=== PATIENT | male | born 1950 | race Caucasian/White ===

== ENCOUNTER 2016-10-26 10:28 | Emergency (ER) | payer OTHER, MEDICARE ==
[~2016-10-26] VITALS: Ht 182.9 cm; Wt 81.6 kg
[~2016-10-26 10:28] MED LIST: ASPIRIN EC325 MG PO; BUFFERIN LOW DO81 MG PO; LOSARTAN POTAS100 M1 PO; SIMVASTATIN40 M1 PO
--- NOTE | 2016-10-26 12:09 | ED GI/GU/ABDOMINAL COMPLAINT ---
History of Present Illness General Chief Complaint: Abdominal Pain/Flank Pain Stated Complaint: LOWER ABD PAIN Source: patient, family Exam Limitations: no limitations Vital Signs & Intake/Output Vital Signs & Intake/Output Vital Signs Date Time Temp Pulse Resp B/P Pulse O2 O2 Flow FiO2 Ox Delivery Rate 10/26 1145 Room Air Room Air 10/26 1054 97.7 66 20 175/76 100 Room Air Allergies Coded Allergies: No Known Allergies (10/26/16) Reconcile Medications Hyoscyamine Sulfate (Levsin-Sl) 0.125 MG TAB.SUBL 1-2 TAB SL Q4P PRN ABDOMINAL SPASMS Losartan Potassium 100 MG TABLET 1 TAB PO DAILY BP (Reported) Omeprazole 20 MG CAPSULE.DR 1 CAP PO DAILY ACID REFLUX (Reported) Primidone 250 MG TABLET 1 TAB PO UNKNOWN (Reported) Simvastatin (Simvastatin*) 40 MG TABLET 1 TAB PO DAILY CHOLESTEROL (Reported) Tamsulosin HCl 0.4 MG CAP.ER.24H 1 CAP PO DAILY PROSTATE (Reported) Triage Note: TRIAGE: PT TO ER WITH C/C LOW ABD PAIN X 1-2 MONTHS, CONSTANT SINCE ONSET. WAS SEEN BY PMD DR AWAD FOR SAME AND WAS REFERRED TO UROLOGIST DR MCFARLANE BECAUSE HIS BLOOD COUNT FOR PROSTATE LEVELS WAS HIGH. HAS SEEN DR MCFARLANE X 3. WAS GIVEN PAIN PILLS AND ANTIBIOTICS BECAUSE "HE SAY I MIGHT HAVE INFECTION BUT HE NEVER TESTED FOR IT AND HE SHOULD HAVE DONE THAT". STATES HE NEVER DID AN ULTRASOUND. REPORTS HAS ALSO HAD PAIN TO [facility]ES GIVING HIM TROUBLE EVEN SITTING DOWN. REPORTS 10 LB WEIGHT LOSS IN 1 MONTH, HAS HAD DECREASED APPETITE. Triage Nurses Notes Reviewed? yes Onset: Gradual Duration: 1 MONTH Timing: recent history Quality/Severity: moderate Severity Numbers: 7 Location: left lower quadrant, right lower quadrant Radiation: back Activities at Onset: none Prior Abdominal Problems: similar symptoms Past Sexual History: Unobtainable at this time No Modifying Factors: none HPI: Patient is a 66-year-old male with history of benign prostate hypertrophy, diverticulitis, recent UTI presenting to the emergency department with chief complaint lower abdominal pain that radiates to the back bilaterally as been constant for the past 1-2 months. Symptoms worse over the past week or so. He saw his primary care physician and a urologist. He now takes medication for his BPH, recently finished antibiotics for a UTI yesterday. Denies any fevers or chills. This morning he noticed his stool is very dark in color. The doctor that diagnosed him with a BPH gave him a prescription for ibuprofen 800 mg to take 3 times a day as needed for pain. He has been doing that and a regular basis for the past 10 days. Denies any dysuria urgency frequency or hematuria. Denies any chest pain shortness of breath. Also reports an 11 pound weight loss over the past 1 month. This was unintentional. (BRYAN GRAVES) Past History Travel History Traveled to [place] past 21 day No Medical History Any Pertinent Medical History? see below for history Neurological: HEADACHES EENT: NONE Cardiovascular: hypertension, hyperlipidemia Respiratory: NONE Gastrointestinal: GERD Hepatic: NONE Renal: NONE Musculoskeletal: osteoarthritis Psychiatric: NONE Endocrine: NONE Blood Disorders: NONE Cancer(s): NONE SALES SERVICE COORDINATOR/Reproductive: NONE History of MRSA: No History of VRE: No History of CDIFF: No Surgical History Surgical History: N Psychosocial History Who do you live with Spouse Services at Home N/A What is your primary language Macanese Tobacco Use: Quit >30 days ago ETOH Use: denies use Illicit Drug Use: denies illicit drug use Family History Hx Contributory? No (BRYAN GRAVES) Review of Systems Review of Systems Constitutional: Reports: no symptoms. Comments Review of systems: See HPI, All other systems negative. Constitutional, no chills fever HEENT: No visual changes no sore throat no congestion Cardiovascular: No chest pain ,palpitation , orthopnea or ankle swelling Skin, no jaundice no rashes Respiratory: No dyspnea cough sputum or hemoptysis GI: no vomiting : No dysuria No hematuria Muscle skeletal: no neck pain, Neurologic: No numbness no confusion NO WEI Psych: No stress anxiety or depression,. Heme/endocrine: No bruising no bleeding no polyuria or polydipsia Immunology: No splenectomy or history of AIDS (BRYAN GRAVES) Physical Exam Physical Exam General Appearance: well developed/nourished, alert, awake, comfortable Gastrointestinal: normal bowel sounds, soft, tenderness Comments: Well-developed well-nourished person in no acute distress HEENT: Pupils equally round and reactive to light and accommodation. Nose is atraumatic. Pharynx normal. No swelling or edema. No pallor to palpable conjunctiva. Neck: Supple, no lymphadenopathy, normal range of motion without pain or tenderness Back: Nontender, no CVA tenderness. Full range of motion, NEG STRAIGHT LEG RAISE. Cardiovascular: Regular rate and rhythms no murmurs rubs or gallops, normal JVP Respiratory: Chest nontender. No respiratory distress.breath sounds clear to auscultation bilaterally Abdomen: Soft, tentative palpation in lower quadrants bilaterally without rebound or guarding. Bowel sounds throughout all 4 quadrants. Nondistended. : Brown stool, guaiac positive, tender to palpation in the 1 o'clock position. No palpable internal hemorrhoids, no visualized external hemorrhoids. Rectal tone within normal range. Extremity: No edema Neuro: Alert oriented x3, motor sensory normal, cranial nerves II through XII grossly intact. Skin: No appreciable rash on exposed skin, skin is warm and dry. Psych: Mood and affect is normal, memory and judgment is normal. Core Measures ACS in differential dx? No Severe Sepsis Present: No Septic Shock Present: No (ELLI NATION,BRYAN) Progress Differential Diagnosis: DIVERTICULITIS, DIVERTICULOSIS, UPPER gi BLEED, LOWER gi BLEED, METASTATIC CANCER, PROSTATE CANCER Plan of Care: Orders Procedure Date/time Status URINALYSIS 10/26 1215 Complete LACTIC ACID 10/26 1215 Complete WESTERGREN SED RATE 10/26 1215 Complete COMPREHENSIVE METABOLIC PANEL 10/26 1215 Complete CBC WITHOUT DIFFERENTIAL 10/26 1215 Complete Laboratory Tests 10/26/16 1230: Anion Gap 7, Estimated GFR > 60, BUN/Creatinine Ratio 21.1, Glucose 88, Lactic Acid 0.9, Calcium 9.9, Total Bilirubin 0.6, AST 24, ALT 41, Alkaline Phosphatase 84, Total Protein 8.1, Albumin 4.5, Globulin 3.6, Albumin/Globulin Ratio 1.3, APTT Cancelled, CBC w Diff NO MAN DIFF REQ, RBC 4.92, MCV 87.4, MCH 29.9, RDW 12.7, MPV 9.1, Gran % 65.5, Lymphocytes % 23.9, Monocytes % 9.0, Eosinophils % 1.1, Basophils % 0.5, Absolute Granulocytes 3.8, Absolute Lymphocytes 1.4, Absolute Monocytes 0.5, Absolute Eosinophils 0.1, Absolute Basophils 0, PUBS MCHC 34.2, ESR Westergren 11 H 10/26/16 1220: Urine Color STRAW, Urine Clarity CLEAR, Urine pH 7.0, Ur Specific Worthington 1.010, Urine Protein NEG, Urine Ketones NEG, Urine Nitrite NEG, Urine Bilirubin NEG, Urine Urobilinogen 0.2, Ur Leukocyte Esterase NEG, Ur Microscopic EXAM NOT REQUIRED, Urine Hemoglobin NEG, Urine Glucose NEG Diagnostic Imaging: Viewed by Me: CT Scan. Discussed w/RAD: CT Scan. Radiology Impression: PATIENT: ONEAL LOCKE PRESENT AGE: 66 PATIENT ACCOUNT NO: [id number] : 48 LOCATION: [facility] ORDERING PHYSICIAN: BRYAN NATION SERVICE DATE: 10/26/16 EXAM TYPE: CAT - CT ABD & PELVIS W IV CONTRAST EXAMINATION: CT ABDOMEN AND PELVIS WITH CONTRAST CLINICAL INFORMATION: Diverticulitis. Abscess. COMPARISON: None TECHNIQUE: Multidetector volumetric imaging was performed of the abdomen and pelvis before and after the IV administration of 94 mL of Optiray 320 intravenous contrast. Sagittal and coronal reformatted images were obtained on the technologist's workstation. DLP: 342.62 mGy-cm FINDINGS: LUNG BASES: The lung bases are clear. There is no pleural effusion. The heart is normal in size. There is no pericardial effusion. LIVER, GALLBLADDER, AND BILIARY TREE: The liver is normal in size, shape, and attenuation. No focal hepatic lesion or biliary ductal dilatation is present. The gallbladder is unremarkable with no evidence of radiopaque gallstones, gallbladder wall thickening, or obvious pericholecystic inflammatory changes. PANCREAS: Unremarkable. SPLEEN: Unremarkable. ADRENAL GLANDS: Unremarkable. KIDNEYS AND URETERS: The kidneys are normal in size, shape , and attenuation. No hydronephrosis, hydroureter, or calculi seen. No perinephric stranding. BLADDER: Unremarkable. GASTROINTESTINAL TRACT: The small and large bowel are unremarkable. There is moderate descending and sigmoid colon diverticulosis. There is no convincing evidence of acute diverticulitis. The appendix is unremarkable. ABDOMINAL WALL: No significant hernia is appreciated. LYMPH NODES: No lymphadenopathy. VASCULAR: The visualized aorta is normal in caliber. PELVIC VISCERA: The prostate gland is enlarged, measuring up to 5.8 cm. OSSEOUS STRUCTURES: Degenerative changes of the thoracolumbar spine. IMPRESSION: There is moderate descending and sigmoid colon diverticulosis. There is no convincing evidence of acute diverticulitis. No intra-abdominal/intrapelvic abscess., PRESENT AGE: 66 PATIENT ACCOUNT NO: [id number] : 48 LOCATION: [facility] ORDERING PHYSICIAN: BRYAN NATION SERVICE DATE: 10/26/16 EXAM TYPE: CAT - CT LUMB SPINE WO IV CONTRAST EXAMINATION: CT LUMBAR SPINE WITHOUT CONTRAST CLINICAL INFORMATION: Rule out bone lesion. Pain. Weight loss. COMPARISON: None TECHNIQUE: Helical non-contrast CT images were obtained through the lumbar spine and 1.25 and 2.5 mm axial reconstructions were reviewed along with sagittal and coronal MPRs. DLP: 600.43 mGy-cm FINDINGS: Lumbar spinal alignment is normal. The lumbar vertebrae are normal in stature. Intervertebral disc space heights are relatively well preserved. The posterior elements are well aligned. SPINAL LEVELS: T12-L1: No disc herniation, spinal canal or neural foraminal narrowing. L1-L2: No disc herniation, spinal canal or neural foraminal narrowing. L2-L3: No disc herniation, spinal canal or neural foraminal narrowing. L3-L4: There is a shallow broad-based disc bulge and facet arthropathy. There is flattening of the ventral thecal sac without spinal canal stenosis. No significant neural foraminal narrowing. L4-L5: There is a shallow broad-based disc bulge and facet arthropathy. No spinal canal or significant neural foraminal narrowing. L5-S1: There is a shallow broad-based disc bulge. There is facet arthropathy. No spinal canal or neural foraminal narrowing. IMPRESSION: Mild lumbar spondylosis. No osseous lesion is seen. DICTATED BY: THEODORA COSTA MD DATE/TIME DICTATED:10/26/161429 MAXILLOFACIAL SURGEON:RADHA DATE/TIME TRANSCRIBED:10/26/161429 CONFIDENTIAL, DO NOT COPY WITHOUT APPROPRIATE AUTHORIZATION. <Electronically signed in Other Vendor System> SIGNED BY: THEODORA COSTA MD 10/26/16 9439 Initial ED EKG: none Comments: On arrival patient declined pain medication. Patient is nontoxic bite is within normal range. Patient does have reproducible lower abdominal pain. Patient is guaiac positive. Likely from excessive ibuprofen use. Cannot exclude upper GI bleed. Patient informed of all laboratory results and imaging study results. H&H is stable. Advised to stop using ibuprofen and he will follow up with GI. Patient given Levsin to help with abdominal discomfort. The lumbar CT scans that show herniated disc between L3 and L4 which could correlate to some abdominal discomfort. Discussed with Dr. Edmonds and he agrees to plan. Patient nontoxic. No signs of cauda equina. (BRYAN GRAVES) Departure Departure Time of Disposition: 1503 Disposition: HOME OR SELF CARE Condition: Stable Clinical Impression Primary Impression: Abdominal pain Qualifiers: Abdominal location: unspecified location Qualified Code: R10.9 - Unspecified abdominal pain Secondary Impressions: Diarrhea Qualifiers: Diarrhea type: unspecified type Qualified Code: R19.7 - Diarrhea, unspecified Referrals: DELMI MAS,BERTHA Reno (PCP/Family) Additional Instructions: Follow-up with your primary care physician as well as gastroenterology call to make an appointment. Stop taking ibuprofen on a regular basis as this can cause stomach ulcers and bleeding. Take Levsin as directed for any abdominal discomfort or spasms. Increase fluids. Take omeprazole as prescribed. Return for worsening symptoms or concerns. Increase YOUR omeprazole to twice a day for the next 7 days. Departure Forms: Customer Survey General Discharge Information Prescriptions: Current Visit Scripts Hyoscyamine Sulfate (Levsin-Sl) 1-2 TAB SL Q4P PRN ABDOMINAL SPASMS #30 TAB (BRYAN GRAVES) PA/ROLL ON WORKER Co-Sign Statement Statement: ED Attending supervision documentation- [X] I saw and evaluated the patient. I have also reviewed all the pertinent lab results and diagnostic results. I agree with the findings and the plan of care as documented in the PA's/ROLL ON WORKER's documentation. [X] I have reviewed the ED Record and agree with the PA's/ROLL ON WORKER's documentation. [] Additions or exceptions (if any) to the PAs/ROLL ON WORKER's note and plan are summarized below: [] (CECILIA MAS,TAMIKA Purdy)
[2016-10-26] MEDS ORDERED: TAMSULOSIN HCL0.4 M1 PO (12:15)
[2016-10-26] MEDS ORDERED: OMEPRAZOLE20 M2 PO (12:15)
[2016-10-26] MEDS ORDERED: PRIMIDONE250 M1 PO (12:16)
[2016-10-26 12:42] LABS: ABSOLUTE BASOPHIL COUNT 0 /CUMM (0.0-0.2); ABSOLUTE EOSINOPHIL COUNT 0.1 /CUMM (0.0-0.7); ABSOLUTE GRANULOCYTE CT 3.8 /CUMM (1.4-6.5); ABSOLUTE LYMPH COUNT 1.4 /CUMM (1.2-3.4); ABSOLUTE MONOCYTE COUNT 0.5 /CUMM (0.10-0.60); BASOPHIL % 0.5 % (0.0-2.0); EOSINOPHIL % 1.1 % (0-5); GRANULOCYTE % 65.5 % (42.2-75.2); MEAN CORPUSCULAR HGB 29.9 PG (27.0-31.0); MEAN CORPUSCULAR HGB CONC 34.2 G/DL (33.0-37.0); MEAN CORPUSCULAR VOLUME 87.4 FL (80.0-94.0); MEAN PLATELET VOLUME 9.1 FL (7.4-10.4); PLATELET COUNT 209 /CUMM (130-400); RBC DISTRIBUTION WIDTH 12.7 % (11.5-14.5); RED BLOOD CELL CT 4.92 /CUMM (4.70-6.10); WHITE BLOOD CELL COUNT 5.8 /CUMM (4.8-10.8)
--- NOTE | 2016-10-26 14:33 | CT SCAN REPORT ---
EXAMINATION: CT ABDOMEN AND PELVIS WITH CONTRAST CLINICAL INFORMATION: Diverticulitis. Abscess. COMPARISON: None TECHNIQUE: Multidetector volumetric imaging was performed of the abdomen and pelvis before and after the IV administration of 94 mL of Optiray 320 intravenous contrast. Sagittal and coronal reformatted images were obtained on the technologist's workstation. DLP: 342.62 mGy-cm FINDINGS: LUNG BASES: The lung bases are clear. There is no pleural effusion. The heart is normal in size. There is no pericardial effusion. LIVER, GALLBLADDER, AND BILIARY TREE: The liver is normal in size, shape, and attenuation. No focal hepatic lesion or biliary ductal dilatation is present. The gallbladder is unremarkable with no evidence of radiopaque gallstones, gallbladder wall thickening, or obvious pericholecystic inflammatory changes. PANCREAS: Unremarkable. SPLEEN: Unremarkable. ADRENAL GLANDS: Unremarkable. KIDNEYS AND URETERS: The kidneys are normal in size, shape, and attenuation. No hydronephrosis, hydroureter, or calculi seen. No perinephric stranding. BLADDER: Unremarkable. GASTROINTESTINAL TRACT: The small and large bowel are unremarkable. There is moderate descending and sigmoid colon diverticulosis. There is no convincing evidence of acute diverticulitis. The appendix is unremarkable. ABDOMINAL WALL: No significant hernia is appreciated. LYMPH NODES: No lymphadenopathy. VASCULAR: The visualized aorta is normal in caliber. PELVIC VISCERA: The prostate gland is enlarged, measuring up to 5.8 cm. OSSEOUS STRUCTURES: Degenerative changes of the thoracolumbar spine. IMPRESSION: There is moderate descending and sigmoid colon diverticulosis. There is no convincing evidence of acute diverticulitis. No intra-abdominal/intrapelvic abscess.
--- NOTE | 2016-10-26 14:48 | CT SCAN REPORT ---
EXAMINATION: CT LUMBAR SPINE WITHOUT CONTRAST CLINICAL INFORMATION: Rule out bone lesion. Pain. Weight loss. COMPARISON: None TECHNIQUE: Helical non-contrast CT images were obtained through the lumbar spine and 1.25 and 2.5 mm axial reconstructions were reviewed along with sagittal and coronal MPRs. DLP: 600.43 mGy-cm FINDINGS: Lumbar spinal alignment is normal. The lumbar vertebrae are normal in stature. Intervertebral disc space heights are relatively well preserved. The posterior elements are well aligned. SPINAL LEVELS: T12-L1: No disc herniation, spinal canal or neural foraminal narrowing. L1-L2: No disc herniation, spinal canal or neural foraminal narrowing. L2-L3: No disc herniation, spinal canal or neural foraminal narrowing. L3-L4: There is a shallow broad-based disc bulge and facet arthropathy. There is flattening of the ventral thecal sac without spinal canal stenosis. No significant neural foraminal narrowing. L4-L5: There is a shallow broad-based disc bulge and facet arthropathy. No spinal canal or significant neural foraminal narrowing. L5-S1: There is a shallow broad-based disc bulge. There is facet arthropathy. No spinal canal or neural foraminal narrowing. IMPRESSION: Mild lumbar spondylosis. No osseous lesion is seen.
[2016-10-26] MEDS ORDERED: LEVSIN-SL0.125 MG SL (15:05)
[2016-10-26 15:21] VITALS: BP 143/76
[2016-10-26] MEDS ORDERED: LEVSIN0.125 M1 PO (15:26)
== END 2016-10-26 15:56 ==
LOC: ERH 10:28
PROVIDERS: Physician Assistant
DX: R10.32 Left lower quadrant pain (principal); R10.31 Right lower quadrant pain; R19.7 Diarrhea, unspecified
CPT/HCPCS: 74177; 81003

== ENCOUNTER → 2017-01-05 | Day surgery (SDC) | payer OTHER, MEDICARE ==
[~2017-01-05] VITALS: Ht 182.9 cm; Wt 77.1 kg
[~2017-01-05] MED LIST changes: +LEVSIN-SL0.125 MG SL; +LEVSIN0.125 M1 PO; +OMEPRAZOLE20 M2 PO; +PRIMIDONE250 M1 PO; +TAMSULOSIN HCL0.4 M1 PO
--- NOTE | 2017-01-05 16:50 | Operative Report ---
Operative/Inv Procedure Report Surgery Date: 01/05/17 Name of Procedure: Laparoscopic preperitoneal mesh repair of right inguinal hernia Pre-Operative Diagnosis: Right inguinal hernia Post-Operative Diagnosis: Same, indirect Estimated Blood Loss: scant Surgeon/Greaser Operator: ADAM MAS,SUSAN NATION Anesthesia: general endotracheal tube Operative/Procedure Note Note: Patient was positioned supine on the table. After successful induction of general anesthesia the inguinal and surrounding areas were clipped prepped and draped in the usual sterile fashion. After injection of local anesthetic at the bottom of the umbilicus off the midline, to the right, a 1 1/2 cm curved incision was made with a 15 blade, then deepened through Tawnya's fascia, sweeping off the rectus sheath. A horizontal 1-1/2 cm incision was made between the fibers, elevating these edges with 0 Vicryl stay sutures. Then retracting the muscle laterally, clearing off the posterior rectus sheath, this space is developed down the midline to the pubis sequentially, with an S retractor, a peanut dissector, then the balloon-camera device, inflating it 30-40 pumps while watching how it opens up the space, in this case both sides, keeping the epigastrics up. The balloon is then replaced with a 10 mm Elizondo trocar, inserted, shortened, and secured with the stay sutures, gas turned on to 12 not 15 mm. Then two 5 mm trochars are inserted in the midline just below the camera, spaced by approximately 3 cm. Using mostly blunt dissection with peanuts to define the anatomy, first Enrique's ligament is swept off medially, checking the medial spaces, direct and femoral. There were no hernias there. Then briefly skipping over the area of the iliac fat pad, we developed the iliopubic tract out laterally to the iliac crest. Then we returned to the area of the fat pad where the hernia sac and the cord structures are adherent, coursing up into an attenuated deep ring. The cord structures form a triangle with the vas approaching medially and the main vessels approaching laterally, with the apex at the deep ring. There was some preperitoneal fat up inside in front that was dragged down and out, helping identify the distal lip of the hernia sac, which is then carefully peeled off the cord structures, especially the vas. The cord is also from the underlying iliac fat. Once the hernia sac is from the cord structures down to the base of this "triangle," a Parietex sided mesh with the suture, is marked and stuffed down the camera trocar, then unfurled in a systematic fashion, first with the smaller leaflet passing behind the cord structures, until the flap covers the epigastrics, covering the deep ring, then the larger leaflet is released from the suture, double-covering the smaller one, but also extends laterally out to the iliac crest, medially over Enrique's ligament, and superiorly towards the camera. There is a third part of the mesh, that covers the iliac fat pad like a skirt. The mesh was adjusted back and forth so that the keyhole is centered around the cord , lays flat and the edges are not curling. We then checked the other side because of the history, there was no left inguinal hernia. A trial run of letting the gas escape a little bit to see how the mesh would lay as the peritoneum comes back down is done, then when we're satisfied, we let rest of the gas escape, pulling out the instruments and trochars. The fascia is closed with a [id number] 0 Vicryl suture, tying the stay sutures on top. Then we closed the 3 skin incisions with interrupted 4-0 Monocryl, 3 for the umbilical, one each for the smaller ones, followed by Mastisol, Steri-Strips and Band-Aids. Overall estimated blood loss was minimal, lap and sponge counts were correct, wound expectancy was clean, IV fluids crystalloid, complications none, patient tolerated the procedure well, did not significantly meza during extubation and was returned to the recovery room in satisfactory condition.
== END ==
LOC: STS 01:08
DX: K40.90 Unilateral inguinal hernia, without obstruction or gangrene, not specified as recurrent (principal); K21.9 Gastro-esophageal reflux disease without esophagitis; I10 Essential (primary) hypertension; I25.10 Atherosclerotic heart disease of native coronary artery without angina pectoris
CPT/HCPCS: C1781; J0131; J0690; J2250